=== PATIENT | female | born 1970 | race Caucasian/White ===

== ENCOUNTER 2019-11-21 20:18 | Inpatient (IN) | payer OTHER ==
[~2019-11-21] VITALS: Ht 172.7 cm; Wt 116.1 kg
[2019-11-21 20:35] VITALS: BP 163/112
[2019-11-21 21:06] LABS: URINE BILIRUBIN NEGATIVE (Negative); URINE BLOOD TRACE (Negative); URINE CLARITY SL HAZY; URINE COLOR YELLOW; URINE GLUCOSE-RANDOM NEGATIVE (Negative); URINE KETONES NEGATIVE (Negative); URINE LEUKOCYTES-REFLEX 1+ (Negative); URINE NITRITE-REFLEX POSITIVE (Negative); URINE PROTEIN TRACE (Negative); URINE SPECIFIC GRAVITY >= 1.030 (1.005-1.030); URINE UROBILINOGEN 0.2 E.U./dl (0.2-1.0)
[2019-11-21 21:08] LABS: ABSOLUTE EOSINOPHILS 0.2 thou/uL (0.0-0.7); ABSOLUTE MONOCYTES 0.5 thou/uL (0.0-1.2); ABSOLUTE NEUTROPHILS 6.5 thou/uL (1.6-8.1); BASOPHILS 0.4 %; EOSINOPHILS 2.1 %; HEMATOCRIT 42.9 % (37.0-47.0); HEMOGLOBIN 14.6 gm/dL (12.0-15.0); MCH 28.3 pg (26.0-34.0); MCHC 33.9 g/dL (28.0-37.0); MCV 83.5 fL (80.0-100.0); MONOCYTES 5.7 %; MPV 7.4 fl. (7.2-11.1); NUCLEATED RBCS 0 /100WBC; PLATELET COUNT* 382 thou/uL (150-400); POLYS 69.8 %; RBC 5.14 mil/uL (4.20-5.00); RDW-CV 14.3 % (10.5-14.5); WBC 9.2 thou/uL (4.0-11.0)
[2019-11-21 21:12] LABS: CALCIUM 9.6 mg/dL (8.5-10.1); CREATININE 1.1 mg/dL (0.6-1.3); POTASSIUM 3.6 mmol/L (3.5-5.1)
[2019-11-21 21:15] LABS: BACTERIA-REFLEX >30 Many /HPF (None Seen); CASTS None Seen /LPF (None Seen); CRYSTALS None Seen /LPF (None Seen); MUCUS 4-6 Moderate strn/LPF (None Seen); SQUAMOUS >10 Many /LPF (0-3); URINE RBC 0-2 Rare /HPF (0-2); URINE WBC-REFLEX 6-15 Few /HPF (0-5)
[2019-11-21 21:17] LABS: ALBUMIN 4.1 g/dL (3.4-5.0); TOTAL BILIRUBIN 0.7 mg/dL (<0.1-1.0); TOTAL PROTEIN 8.4 g/dL (6.4-8.2)
[2019-11-22 00:43] VITALS: BP 125/70
[2019-11-22 07:30] VITALS: BP 132/76
[2019-11-22 11:04] LABS: CALCIUM 8.6 mg/dL (8.5-10.1); POTASSIUM 3.8 mmol/L (3.5-5.1)
[2019-11-22 11:07] LABS: MAGNESIUM 2.1 mg/dL (1.8-2.4); PHOSPHORUS* 3.2 mg/dL (2.5-4.9)
[2019-11-22 12:00] VITALS: BP 136/91
[2019-11-22 16:46] VITALS: BP 118/85
[2019-11-22 20:00] VITALS: BP 120/74
[2019-11-23 04:13] LABS: HEMATOCRIT 39.2 % (37.0-47.0); HEMOGLOBIN 13.1 gm/dL (12.0-15.0); MCH 28.4 pg (26.0-34.0); MCHC 33.3 g/dL (28.0-37.0); MCV 85.2 fL (80.0-100.0); MPV 7.4 fl. (7.2-11.1); RBC 4.61 mil/uL (4.20-5.00); RDW-CV 14.2 % (10.5-14.5); WBC 6.4 thou/uL (4.0-11.0)
[2019-11-23 04:44] LABS: CALCIUM 8.3 mg/dL (8.5-10.1); CREATININE 0.8 mg/dL (0.6-1.3); POTASSIUM 3.7 mmol/L (3.5-5.1)
[2019-11-23] MEDS ORDERED: SENNA-TIME S T1 EACH PO (07:57)
[2019-11-23] MEDS ORDERED: MIRALAX17 GM PO (07:57)
[2019-11-23] MEDS ORDERED: CEFUROXIME250 MG PO (07:57)
[2019-11-23 08:00] VITALS: BP 125/82
[2019-11-23 10:41] VITALS: BP 120/74
== END 2019-11-23 15:00 | disposition home or self-care (01) | DRG 390 ==
LOC: M.ERS 20:18 → M.TBA-ER 23:20 → M.2W 11-22 00:55 → M.ORTHSURG 11-22 13:57
PROVIDERS: Personal Emergency Response Attendant; ADMIT Internal Medicine; ATTEND Internal Medicine
DX: K56.600 Partial intestinal obstruction, unspecified as to cause (principal); F17.210 Nicotine dependence, cigarettes, uncomplicated; N30.91 Cystitis, unspecified with hematuria; E66.9 Obesity, unspecified; K59.00 Constipation, unspecified; Z20.828 Contact with and (suspected) exposure to other viral communicable diseases; Z90.721 Acquired absence of ovaries, unilateral; Z68.38 Body mass index [BMI] 38.0-38.9, adult